=== PATIENT | male | born 1965 | race Two or more races ===

== ENCOUNTER 2025-01-08 09:41 | Emergency (ER) | payer MEDICAID, SELFPAY ==
[2025-01-08 09:55] VITALS: BP 163/82; PULSE 93; RESP 20; TEMP 37; O2SAT 99; BMI 28.6
--- NOTE | 2025-01-08 09:59 | XR_ITS ---
Examination: CT abdomen and pelvis without contrast. Coronal 3-D reconstructions. Sagittal 2-D reconstructions. Date and time of exam:January 08, 2025 1040 hours INDICATIONS: Generalized abdominal pain beginning 5:00 AM this morning CTDI: vol (mGy): 7.68 DLP: (mGycm): 400 Technique: Axial images of the abdomen have been obtained, 3 mm slice thickness Intravenous contrast material has not been administered. Low dose protocols were performed. One or more of the following dose reduction techniques were used; automated exposure control, adjustment of the mA and/or KV according to patient size, use of iterative reconstruction technique. Findings: Small liver calcification Spleen is not enlarged. No pancreatic or adrenal mass. Mild right hydronephrosis secondary to 2 mm distal right ureterovesical junction calculus Normal appendix Colonic diverticulosis Contracted urinary bladder IMPRESSION: Mild right hydronephrosis secondary to 2 mm distal right ureterovesical junction calculus
--- NOTE | 2025-01-08 10:00 | PD.EDABDPN ---
ED Abdominal Pain RME/HPI General Chief Complaint: Abdominal Pain Stated complaint: SEVERE RLQ ABD PAIN SINCE 5AM TODAY Time seen by provider: 01/08/25 09:56 Arrival date/time: 01/08/25 09:41 59-year-old male with no known medical history presents to the emergency room with a chief complaint of right lower abdominal pain since 5 AM this morning. Patient denies vomiting fevers or dysuria. Source: patient Mode of arrival: ambulatory Limitations: no limitations Related Data Home Medications ?Medication ?Instructions ?Recorded ?Confirmed No Known Home Medications 03/03/24 03/03/24 Allergies Allergy/AdvReac Type Severity Reaction Status Date / Time No Known Allergies Allergy Verified 01/08/25 09:48 Review of Systems Review of Systems Systems Reviewed: All systems reviewed, normal except as documented Constitutional Constitutional: Reports system reviewed and no additional complaints, except as documented, Denies fatigue, Denies fever(s), Denies headache(s) and Denies weakness Eyes Eyes: Reports system reviewed and no additional complaints, except as documented, Denies blurry vision and Denies change in vision ENT Ears, Nose, Mouth, and Throat: Reports system reviewed and no additional complaints, except as documented, Denies otalgia, Denies headache(s), Denies nasal congestion, Denies throat swelling and Denies vertigo Cardiovascular Cardiovascular: Reports system reviewed and no additional complaints, except as documented, Denies chest pain, Denies dyspnea and Denies dyspnea on exertion Respiratory Respiratory: Reports system reviewed and no additional complaints, except as documented, Denies chest congestion, Denies cough, Denies dyspnea, Denies dyspnea on exertion and Denies wheezing Gastrointestinal Gastrointestinal: Reports system reviewed and no additional complaints, except as documented, Reports abdominal pain, Reports cramping, Denies nausea and Denies vomiting Genitourinary Genitourinary: Reports system reviewed and no additional complaints, except as documented, Denies dysuria and Denies hematuria Musculoskeletal Musculoskeletal: Reports system reviewed and no additional complaints, except as documented and Denies back pain Integumentary/Breasts Skin/Breast: Reports system reviewed and no additional complaints, except as documented and Denies wounds Neurologic Neurologic: Reports system reviewed and no additional complaints, except as documented, Denies confusion, Denies headache(s), Denies lack of coordination, Denies vertigo and Denies weakness Psychiatric Psychiatric: Reports system reviewed and no additional complaints, except as documented, Denies anxiety, Denies confusion, Denies depression, Denies paranoia, Denies suicidal ideation and Denies tactile hallucinations Endocrine Endocrine: Reports system reviewed and no additional complaints, except as documented and Denies fatigue Hematologic/Lymphatic Hematologic/Lymphatic: Reports system reviewed and no additional complaints, except as documented and Denies lymphadenopathy Allergic/Immunologic Allergic/Immunologic: Reports system reviewed and no additional complaints, except as documented, Denies throat swelling, Denies urticaria and Denies wheezing Past Medical History Past Medical History NEUROLOGIC: Negative Neurological Disorders or Seizures CARDIAC: Negative Cardiac Disorders or Congestive Heart Failure RESPIRATORY: Negative Chronic Obstructive Pulmonary Disease (COPD) GASTROINTESTINAL: Negative Gastrointestinal Disorders GENITOURINARY: Negative Genitourinary Disorders or Renal Disease MUSCULOSKELETAL: Negative Musculoskeletal Disorders ENDOCRINE: Negative Endocrine Disorders, Diabetes Mellitus Type 1 or Diabetes Mellitus Type 2 HEMATOLOGIC: Negative Blood Disorders OTHER HISTORY: Positive Chicken Pox and Measles; Negative Autoimmune Disease, Falls, Blood Transfusions, Anesthesia Reactions, MRSA or Cancer Social History SMOKING STATUS: Never smoker ED Exam General Limitations: Present no limitations General appearance: Present alert and in no apparent distress Head Head exam: Present atraumatic Eye Eye exam: Present normal appearance, PERRL and EOMI ENT ENT exam: Present normal exam, normal oropharynx and mucous membranes moist Neck Neck exam: Present normal inspection, full ROM and trachea midline Chest Chest inspection: Present normal inspection and symmetric chest wall rise Respiratory Respiratory exam: Present normal lung sounds bilaterally Cardiovascular Cardiovascular exam: Present regular rate, normal rhythm and normal heart sounds Abdominal Exam Abdominal exam: Present soft, tenderness and normal bowel sounds; Absent distention, guarding, rebound, rigidity or tenderness at McBurney's Point Abdominal tenderness: Present RLQ and moderate; Absent RUQ, LUQ or LLQ Extremities Exam Extremities exam: Present normal inspection and full ROM Back Exam Back exam: Present normal inspection and full ROM Neurological Exam Neurological exam: Present alert, oriented X3 and CN II-XII intact Psychiatric Psychiatric exam: Present normal affect and normal mood Skin Skin exam: Present warm, dry, intact and normal color Course Quality Measures none Orders Category Date Time Status CT abdomen pelvis wo con Stat Exams 01/08/25 09:59 Ordered CBC Stat Lab 01/08/25 09:59 Ordered CMP [Comprehensive Metabolic Panel] Stat Lab 01/08/25 09:59 Ordered Lipase Stat Lab 01/08/25 09:59 Ordered UA [Urinalysis] Stat Lab 01/08/25 09:59 Ordered Urine Culture Stat Lab 01/08/25 09:59 Ordered HYDROcodone*/APAP 5/325 [[place] 5/325] Med 01/08/25 09:59 Discontinued 1 tab PO X1 ONE Vital Signs Vital signs: Vital Signs Temperature 98.6 F 01/08/25 09:55 Pulse Rate 93 01/08/25 09:55 Respiratory Rate 20 01/08/25 09:55 Blood Pressure 163/82 H 01/08/25 09:55 Pulse Oximetry (%) 99 01/08/25 09:55 Oxygen Delivery Method Room Air 01/08/25 09:55 O2 saturation 99% within normal limits Abdominal Pain MDM MDM Narrative MDM Narrative:: 59-year-old male with no known medical history presents to the emergency room with a chief complaint of right lower abdominal pain since 5 AM this morning. Patient denies vomiting fevers or dysuria. Patient data External records reviewed:: [facility] previous records Clinical information provided by:: patient Social determinants that could affect healthcare access:: none Patient has the following chronic illnesses:: No chronic illness How is presenting disease/condition affected by chronic disease/condition?: no chronic disease Evaluation data The following diagnostics were reviewed and interpreted by me:: lab results and radiology exam(s) Lab and/or radiology exams considered but not ordered:: Labs and radiology exams considered and ordered Interpretation Summary: CT abdomen and pelvis- Medications / Prescriptions Medications or Prescriptions considered but not ordered:: Medication given Medication administrations:: Medication Administration History Discontinued Medications Hydrocodone Bitart/Acetaminophen (Hydrocodone/Apap 5/325 Tablet) 1 tab PO X1 ONE Stop: 01/08/25 10:00 Medication given Consultations Consultation(s) initiated? (list below): No Diagnosis Differential diagnosis abdominal pain: abdominal pain, acute appendicitis, constipation, diverticulitis, gastroenteritis and small bowel obstruction Admission Indicated Admission indicated?: not indicated Admission Request Was there a request for admission?: No Disposition Plan Disposition Plan: Discharge Discharge Attestation Discharge Attestation: The patient and all family members were given an opportunity to ask questions and understood the discharge instructions. Discharge instructions specifically effects, indications for sooner follow up or return to the emergency department, and the expected course of current diagnosis. Patient condition: Stable Discharge Plan Prescriptions/Referrals Prescriptions/Med Rec: No Action No Known Home Medications Patient/Caregiver Discharge Instructions Print Language: Turkish
[2025-01-08 10:20] LABS: Basophils % (Auto) 0 % (0-2.5); Eosinophils # (Auto) 0.1 Thou/mm3 (0.0-0.5); Eosinophils % (Auto) 2 % (0-10); Hematocrit 44.4 % (41.0-53.0); Immature Granulocytes % (Auto) 0 % (0-0); Immature Granulocytes Auto 0.01 Thou/mm3 (0.00-0.00); Lymphocytes # (Auto) 2.4 Thou/mm3 (1.0-4.8); Lymphocytes % (Auto) 44 % (10-50); Mean Corpuscular HGB Conc 33.8 g/dl (31.0-37.0); Mean Corpuscular Hemoglobin 30.4 pg (25.0-35.0); Mean Corpuscular Volume 90 fL (80-100); Monocytes # (Auto) 0.3 Thou/mm3 (0.0-0.8); Monocytes % (Auto) 6 % (0-12); Neutrophils # (Auto) 2.6 Thou/mm3 (1.8-7.7); Neutrophils % (Auto) 48 % (37-80); Nucleated Red Blood Cell % 0 /100 WBC (0); Platelet Count 218 Thou/mm3 (140-440); RDW Standard Deviation 41.7 fL (35.1-43.9); Red Blood Count 4.94 Miln/mm3 (4.50-5.90); White Blood Count 5.4 Thou/mm3 (3.8-10.6)
[2025-01-08 10:37] LABS: Alanine Aminotransferase 34 U/L (10-49); Albumin, Serum 4.6 gm/dL (3.5-5.0); Albumin/Globulin Ratio 1.5 (1.2-2.2); Alkaline Phosphatase 71 U/L (46-116); Anion Gap 10 (7-16); Aspartate Amino Transferase 27 U/L (0-34); BUN/Creatinine Ratio 13 Ratio (12-20); Bilirubin,Total 0.5 mg/dL (0.3-1.2); Blood Urea Nitrogen 13 mg/dL (9-23); Calcium 9.8 mg/dL (8.3-10.6); Calcium (Corrected) 9.8 mg/dL (8.5-10.1); Carbon Dioxide 23.9 mMol/L (20.0-31.0); Chloride 109 mMol/L (98-107); Estimated Creatinine Clearance 80.3 mL/min (>60); Globulin 3.1 gm/dL (2.3-3.5); Glucose 125 mg/dL (74-106); Lipase 33 U/L (12-53); Osmolality,Calculated 286 (275-295); Potassium 4.1 mMol/L (3.4-5.1); Sodium 143 mMol/L (136-145); Total Protein 7.7 gm/dL (5.7-8.2); eGFR > 60 See Note
[2025-01-08] MEDS: HYDROcodone/APAP 5/325 TABLET 1 TAB PO (10:58)
[2025-01-08 12:27] LABS: Collection Type, Urine Clean Catch; Squamous Epithelial Cell,Urine 0 /hpf (0-5)
[2025-01-08 13:01] LABS: Bilirubin,Urine Negative (Negative); Blood,Urine 3+ (Negative); Clarity,Urine Turbid (Clear/Hazy); Color,Urine Lt-Yellow (Lt Yel-Yel); Glucose, Urine Negative (Negative); Ketones,Urine Negative (Negative); Leukocyte Esterase,Urine Negative (Negative); Nitrite,Urine Negative (Negative); Protein,Urine 1+ (Neg - Trace); RBC,Urine 579 /hpf (0-3); Specific Gravity,Urine 1.023 (1.001-1.035); Urobilinogen,Urine Negative mg/dL (0.0-1.0); WBC,Urine 6 /hpf (0-5)
[2025-01-08] MEDS: KETOROLAC INJ 60 MG/2 ML VIAL IM (13:06)
--- NOTE | 2025-01-08 13:21 | PD.EDRME ---
Rapid Medical Screening Exam [facility] Arrival date/time: 01/08/25 09:41 59-year-old male with no known medical history presents to the emergency room with a chief complaint of right lower abdominal pain since 5 AM this morning. Patient denies vomiting fevers or dysuria. I have greeted and performed a focused initial assessment of this patient. A comprehensive ED assessment and evaluation of the patient, analysis of all test results, and completion of the medical decision making process will be conducted by additional ED providers. Chief Complaint: Abdominal Pain Time Seen by Provider: 01/08/25 09:56 Vital signs: Vital Signs Temperature 98.6 F 01/08/25 09:55 Pulse Rate 93 01/08/25 09:55 Respiratory Rate 20 01/08/25 09:55 Blood Pressure 163/82 H 01/08/25 09:55 Pulse Oximetry (%) 99 01/08/25 09:55 Oxygen Delivery Method Room Air 01/08/25 09:55 Vital signs reviewed by provider: Yes
--- NOTE | 2025-01-08 18:12 | PC.NURSE ---
Received verbal order form ER provider for 4mg morphine IV and 4mg zofran IV.
[2025-01-08 18:26] VITALS: BP 149/83; PULSE 79; RESP 18; TEMP 36.8; O2SAT 99
[2025-01-08] MEDS: ONDANSETRON INJ 2 MG/ML INJ 2 ML 4 MG IV (18:31)
[2025-01-08] MEDS: MORPHINE SULF INJ 10 MG/ML VIAL 4 MG IVP (18:31)
--- NOTE | 2025-01-08 18:52 | PD.EDABDPN ---
ED Abdominal Pain RME/HPI General Chief Complaint: Abdominal Pain Stated complaint: SEVERE RLQ ABD PAIN SINCE 5AM TODAY Time seen by provider: 01/08/25 09:56 Arrival date/time: 01/08/25 09:41 59 year old male present to emergency room with c/o of RLQ pain since wednesday morning. pt denies any similar pain in the past LOCATION: RLQ SEVERITY: Symptoms are described as being severe with limitations on activities of daily living QUALITY: Symptoms are described as being cramping CONTEXT: The patient is unable to identify any inciting events. DURATION/TIMING: The symptoms started approximately 6 days ASSOCIATED SYMPTOMS: The patient is unable to identify any other associated symptoms. MODIFYING FACTORS: The patient is unable to identify any alleviating or aggravating symptoms. PERTINENT ROS: no fevers, no anorexia, no nausea or vomiting, no diarrhea, no ripping or tearing sensations, no syncope or presyncopal symptoms, denies trauma, denies genital pain REVIEW OF SYSTEMS: See History of Present Illness - with the exception of those mentioned in the history of present illness, all other systems reviewed and reported as negative GENERAL: In general the patient is awake, interactive, in an emergency department [place]. HEAD/EYES/EARS/NOSE/THROAT: normo-cephalic, atraumatic, mucus membranes are moist, anicteric, palpebral conjunctiva is pink, trachea is midline. CARDIOVASCULAR: regular rate and regular rhythm, no murmurs, heart sounds are not distant, strong pulses in all four extremities that are equal and symmetric bilateral upper and lower extremities, normal capillary refill. CHEST/PULMONARY: normal chest rise and fall, good air movement, clear to auscultation bilaterally, normal inspiratory to expiratory ratios without evidence of respiratory distress. NECK: No midline/Paraspinal tenderness, no step off ROM/Strenght intact No Kernig and bruzinski sign. No trauma ABDOMEN: soft, right lower abdominal tenderness, no cva tenderness, no masses appreciated BACK: normal range of motion without pain. NEUROLOGICAL: cranio-facial features are symmetric, moves all four extremities equally without obvious limitations or weakness. EXTREMITY: no tenderness to palpation over the long bones or large joints of the bilateral upper and lower extremities, no joint swelling, no joint erythema, no signs of trauma, no unilateral leg swelling and no peripheral edema. SKIN: warm, dry, well-perfused, no jaundice, no rash, no telangiectasias or petechia. PSYCH: calm, cooperative, no evidence of psychosis or agitation RME / HPI RME / HPI narrative: 01/08/25 09:41 59-year-old male with no known medical history presents to the emergency room with a chief complaint of right lower abdominal pain since 5 AM this morning. Patient denies vomiting fevers or dysuria. I have greeted and performed a focused initial assessment of this patient. A comprehensive ED assessment and evaluation of the patient, analysis of all test results, and completion of the medical decision making process will be conducted by additional ED providers. Related Data Previous Rx's ?Medication ?Instructions ?Recorded naproxen 500 mg tablet,delayed 500 mg PO BID PRN pain #30 tabs 01/08/25 release ondansetron 4 mg disintegrating 4 mg PO Q8H PRN nausea and 01/08/25 tablet vomiting #20 tabs tamsulosin 0.4 mg capsule 0.4 mg PO QDAY #10 caps 01/08/25 Allergies Allergy/AdvReac Type Severity Reaction Status Date / Time No Known Allergies Allergy Verified 01/08/25 09:48 Course Course Course Narrative: Presentation most consistent with Renal Colic from a Non-infected Kidney Stone. Given History and Exam I have lower suspicion for atypical appendicitis, genital torsion, acute cholecystitis, AAA, Aortic Dissection, Serious Bacterial Illness or other emergent intraabdominal pathology. Workup: CBC, BMP, CT Abd/Pelvis noncontrast, UA, reassess Findings: Findings: Small liver calcification Spleen is not enlarged. No pancreatic or adrenal mass. Mild right hydronephrosis secondary to 2 mm distal right ureterovesical junction calculus Normal appendix Colonic diverticulosis Contracted urinary bladder IMPRESSION: Mild right hydronephrosis secondary to 2 mm distal right ureterovesical junction calculus ua: + rbc Rx: naproxen 500mg, zofran 4mg and tamosulin .4mg? Reassesment: Patient tolerating PO and pain controlled Disposition:? Discharge. Strict return precautions for infected stone or PO intolerance discussed. Quality Measures none Orders Category Date Time Status CT abdomen pelvis wo con Stat Exams 01/08/25 09:59 Completed CBC Stat Lab 01/08/25 10:03 Completed CMP [Comprehensive Metabolic Panel] Stat Lab 01/08/25 10:03 Completed Lipase Stat Lab 01/08/25 10:03 Completed UA [Urinalysis] Stat Lab 01/08/25 12:00 Completed Urine Culture Stat Lab 01/08/25 12:00 Received HYDROcodone*/APAP 5/325 [[place] 5/325] Med 01/08/25 09:59 Discontinued 1 tab PO X1 ONE Ketorolac Inj [Toradol Inj] Med 01/08/25 12:59 Discontinued 60 mg IM X1 ONE Morphine Inj Med 01/08/25 18:13 Discontinued 4 mg IVP X1 ONE Ondansetron Inj [Zofran Inj] Med 01/08/25 18:13 Discontinued 4 mg IV X1 ONE Vital Signs Vital signs: Vital Signs Temperature 98.6 F 01/08/25 09:55 Pulse Rate 93 01/08/25 09:55 Respiratory Rate 20 01/08/25 09:55 Blood Pressure 163/82 H 01/08/25 09:55 Pulse Oximetry (%) 99 01/08/25 09:55 Oxygen Delivery Method Room Air 01/08/25 09:55 Abdominal Pain MDM Patient data External records reviewed:: [facility] previous records Clinical information provided by:: patient and spouse Social determinants that could affect healthcare access:: none Patient has the following chronic illnesses:: n/a How is presenting disease/condition affected by chronic disease/condition?: no chronic disease Evaluation data The following diagnostics were reviewed and interpreted by me:: lab results and radiology exam(s) Lab and/or radiology exams considered but not ordered:: n/a Interpretation Summary: ct: Findings: Small liver calcification Spleen is not enlarged. No pancreatic or adrenal mass. Mild right hydronephrosis secondary to 2 mm distal right ureterovesical junction calculus Normal appendix Colonic diverticulosis Contracted urinary bladder IMPRESSION: Mild right hydronephrosis secondary to 2 mm distal right ureterovesical junction calculus cbc/cmp wnl urine no infection + rbc IV fluids, toradol 60mg, morphine 4mg and zofran 4mg strain given to patient Medications / Prescriptions Medications or Prescriptions considered but not ordered:: n/a Medication administrations:: Medication Administration History Discontinued Medications Hydrocodone Bitart/Acetaminophen (Hydrocodone/Apap 5/325 Tablet) 1 tab PO X1 ONE Stop: 01/08/25 10:00 Last Admin: 01/08/25 10:58 Dose: 1 tab Documented By: NAZIA Ketorolac Tromethamine (Ketorolac Inj 60 Mg/2 Ml Vial) 60 mg IM X1 ONE Stop: 01/08/25 13:00 Last Admin: 01/08/25 13:06 Dose: 60 mg Documented By: DELROY Morphine Sulfate (Morphine Sulf Inj 10 Mg/Ml Vial) 4 mg IVP X1 ONE Stop: 01/08/25 18:14 Last Admin: 01/08/25 18:31 Dose: 4 mg Documented By: NAZIA Ondansetron HCl (Ondansetron Inj 2 Mg/Ml Inj 2 Ml) 4 mg IV X1 ONE; Protocol Stop: 01/08/25 18:14 Last Admin: 01/08/25 18:31 Dose: 4 mg Documented By: NAZIA as stated above Consultations Consultation(s) initiated? (list below): No Diagnosis Differential diagnosis abdominal pain: abdominal pain, acute appendicitis, calculus of kidney, constipation, diverticulitis, gastroenteritis, pancreatitis and small bowel obstruction Most likely diagnosis given after review of the tests above:: uvj stone Admission Indicated Admission indicated?: not indicated Admission Request Was there a request for admission?: No Disposition Plan Disposition Plan: Discharge Discharge Attestation Discharge Attestation: The patient and all family members were given an opportunity to ask questions and understood the discharge instructions. Discharge instructions specifically effects, indications for sooner follow up or return to the emergency department, and the expected course of current diagnosis. Patient condition: Stable Discharge Plan Plan Patient Disposition: HOME (Self Care) Health Concerns: Follow with PMD as directed Take tylenol or motrin as need Return to ED if sx worsen Prescriptions/Referrals Prescriptions/Med Rec: New naproxen 500 mg tablet,delayed release (DR/EC) 500 mg PO BID PRN (Reason: pain) Qty: 30 1RF ondansetron 4 mg tablet,disintegrating 4 mg PO Q8H PRN (Reason: nausea and vomiting) Qty: 20 0RF tamsulosin 0.4 mg capsule 0.4 mg PO QDAY Qty: 10 0RF Referrals: Donn Batres MD [Primary Care Provider] - In 1 week Problem List Clinical Impression: Calculus of ureterovesical junction (UVJ) Patient/Caregiver Discharge Instructions Education Materials: Preventing Kidney Stones Print Language: Divehi Stand Alone Forms: Yuliya Award Info., Patient Portal Info Letter
== END 2025-01-08 19:06 | disposition home or self-care (01) ==
PROVIDERS: Nurse Practitioner Family; Emergency Provider Emergency Medicine; PCP Family Medicine
DX: N13.2 Hydronephrosis with renal and ureteral calculous obstruction (principal)
CPT/HCPCS: 36415; 74176; 80053; 81001; 83690; 85025; 87086; 96372; 96374; 96375; 99284; J1885; J2270; J2405; A9270